=== PATIENT | female | born 1965 | race Caucasian/White ===

== ENCOUNTER 2016-04-02 11:05 | Emergency (ER) | payer MEDICAID, OTHER ==
[~2016-04-02] VITALS: Ht 157.5 cm; Wt 120.0 kg
[~2016-04-02 11:05] MED LIST: ALEN70TA39 PO; ASPI81 PO; FENO1TAB76 PO; HYDR-3533 PO; LASI20TA PO; POTA-243 PO; RANI150T PO; TOPR50TA PO; VITA-13 PO; ZOCO40TA PO
[2016-04-02 11:24] VITALS: BP 144/90; PULSE 82; RESP 18; TEMP 99.2; O2SAT 96
[2016-04-02] MEDS ORDERED: POTA10TA2 PO (11:46)
[2016-04-02] MEDS ORDERED: ASPI81CH7 CHEW (11:46)
[2016-04-02] MEDS ORDERED: METO50TA PO (11:46)
[2016-04-02] MEDS ORDERED: FURO1TAB62 PO (11:46)
[2016-04-02] MEDS ORDERED: RANI150T PO (11:46)
[2016-04-02] MEDS ORDERED: SIMV20TA PO (11:46)
--- NOTE | 2016-04-02 11:51 | PD ---
HPI Chief Complaint: Back/ Neck Pain or Injury Time Seen by Provider: 11:50 Travel History International Travel<30 days: No Contact w/Intl Traveler<30days: No Traveled to known affect area: No History of Present Illness HPI 51-year-old female presents to the emergency Department with complaint of urinary urgency, frequency, dysuria 3 days. Reports fever of 100.9 on Friday and has not had fever since. Denies abdominal pain. Reports nausea without vomiting. Reports bladder spasms after urination. Denies hematuria. Reports history of kidney stones. Reports bilateral low back pain. Denies vaginal discharge, odor, itch, lesions. Denies being sexually active and reports being in premenopausal. Had a small menses in February. Took Tylenol last night with no relief of symptoms. Dr. Ventura is primary care provider. History of hypertension, hyperlipidemia, lower extremity edema and is on Lasix. No other modifying factors or associated signs and symptoms. PFSH Past Medical History Hx Anticoagulant Therapy: Yes (asa 81mg) Blood Disorders: No Cancer: No Cardiovascular Problems: Yes (HTN) High Cholesterol: Yes Chest Pain: Yes Congestive Heart Failure: Yes Diabetes: No Diminished Hearing: No GERD: Yes Genitourinary: Yes (FREQUENT UTI/KIDNEY STONES) Hypertension: Yes Immune Disorder: No Musculoskeletal: Yes (CHRONIC BACK PAIN) Neurologic: No Psychiatric: No Reproductive: No Respiratory: Yes (SLEEP APNEA) Immunizations Current: Yes Sleep Apnea: Yes (wears c-pap) Thyroid Disease: Yes ?: Not Menopausal: Yes Dilation and Curettage (D&C): Yes (2005) Past Surgical History Body Medical Devices: SCREWS AND PLATE IN LEFT ELBOW Cholecystectomy: Yes Endocrine Surgery: Yes (PARTIAL PARATHYROIDECTOMY X 3) Tonsillectomy: Yes Other Surgery: Yes (RLE VEIN ABLATION) Social History Alcohol Use: No Tobacco Use: No Substance Use: No Allergies-Medications (Allergen,Severity, Reaction): Coded Allergies: Niacin (Verified Allergy, Intermediate, FLUSH, 04/02/16) *MDRO Multi-Drug Resistant Organism (Verified Adverse Reaction, Unknown, ) 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 (urine-11/08/15) Reported Meds & Prescriptions Reported Meds & Active Scripts Active Robaxin (Methocarbamol) 750 Mg Tab 750 Mg PO QID Reported Metoprolol Tartrate 50 Mg Tab 50 Mg PO BID Ranitidine (Ranitidine HCl) 150 Mg Tab 150 Mg PO BID Simvastatin 20 Mg Tab 20 Mg PO DAILY Potassium Chloride ER (Potassium Chloride) 10 Meq Tab 10 Meq PO DAILY Aspirin Children's (Aspirin) 81 Mg Chew 81 Mg CHEW DAILY Lasix (Furosemide) 20 Mg Tab 20 Mg PO BID Review of Systems Except as stated in HPI: all other systems reviewed are Neg Physical Exam Narrative GENERAL: Well-nourished, well-developed female patient, in no acute distress SKIN: Warm and dry. No rash. HEAD: Atraumatic. Normocephalic. EYES: Pupils equal and round. No scleral icterus. No injection or drainage. ENT: Mucosa pink and moist. NECK: Trachea midline. CARDIOVASCULAR: Regular rate and rhythm. No murmur appreciated. RESPIRATORY: No accessory muscle use. Clear to auscultation. Breath sounds equal bilaterally. GASTROINTESTINAL: Abdomen soft, non-tender, nondistended. Hepatic and splenic margins not palpable. Bowel sounds are active 4 quadrants. Bladder tender on palpation; and nondistended. MUSCULOSKELETAL: No obvious deformities. No clubbing. No cyanosis. No edema. BACK: No CVA tenderness. NEUROLOGICAL: Awake and alert. Oriented 3. No obvious cranial nerve deficits. Motor grossly within normal limits. Normal speech. Moves all extremities. 5/5 strength to all extremities. PSYCHIATRIC: Appropriate mood and affect; insight and judgment normal. Data Data Last Documented VS Vital Signs Date Time Temp Pulse Resp B/P Pulse Ox O2 Delivery O2 Flow Rate FiO2 04/02/16 13:42 16 97 Room Air 04/02/16 13:41 81 143/72 04/02/16 11:24 99.2 Orders Urinalysis - C+S If Indicated (04/02/16 11:43) Ed Urine Pregnancytest Poc (04/02/16 11:50) Ibuprofen (Motrin) (04/02/16 12:00) Complete Blood Count With Diff (04/02/16 12:37) Comprehensive Metabolic Panel (04/02/16 12:37) Lipase (04/02/16 12:37) Prothrombin Time / Inr (Pt) (04/02/16 12:37) Act Partial Throm Time (Ptt) (04/02/16 12:37) Iv Access Insert/Monitor (04/02/16 12:37) Ecg Monitoring (04/02/16 12:37) Oximetry (04/02/16 12:37) Morphine Inj (Morphine Inj) (04/02/16 12:45) Ondansetron Inj (Zofran Inj) (04/02/16 12:45) Sodium Chlor 0.9% 1000 Ml Inj (Ns 1000 M (04/02/16 12:37) Ct Abd/Pel W/O Iv Contrast (04/02/16 12:37) Labs Laboratory Tests Test 04/02/16 04/02/16 11:50 13:15 Urine Collection Type CLEAN CATCH Urine Color STRAW Urine Turbidity CLEAR Urine pH 7.0 Urine Specific [place] 1.004 Urine Protein NEG mg/dL Urine Glucose (UA) NEG mg/dL Urine Ketones NEG mg/dL Urine Occult Blood NEG Urine Nitrite NEG Urine Bilirubin NEG Urine Leukocyte Esterase NEG Urine WBC 0-2 /hpf Urine Squamous Epithelial 0-5 /hpf Cells Urine Amorphous Sediment SMALL Microscopic Urinalysis Comment CULT NOT INDICATED White Blood Count 8.9 TH/MM3 Red Blood Count 4.20 MIL/MM3 Hemoglobin 12.2 GM/DL Hematocrit 38.6 % Mean Corpuscular Volume 91.8 FL Mean Corpuscular Hemoglobin 29.1 PG Mean Corpuscular Hemoglobin 31.7 % Concent Red Cell Distribution Width 13.7 % Platelet Count 275 TH/MM3 Mean Platelet Volume 7.6 FL Neutrophils (%) (Auto) 74.0 % Lymphocytes (%) (Auto) 20.2 % Monocytes (%) (Auto) 4.0 % Eosinophils (%) (Auto) 1.3 % Basophils (%) (Auto) 0.5 % Neutrophils # (Auto) 6.6 TH/MM3 Lymphocytes # (Auto) 1.8 TH/MM3 Monocytes # (Auto) 0.4 TH/MM3 Eosinophils # (Auto) 0.1 TH/MM3 Basophils # (Auto) 0.0 TH/MM3 CBC Comment DIFF FINAL Differential Comment Prothrombin Time 10.6 SEC Prothromb Time International 1.0 RATIO Ratio Activated Partial 24.2 SEC Thromboplast Time Sodium Level 142 MEQ/L Potassium Level 3.9 MEQ/L Chloride Level 107 MEQ/L Carbon Dioxide Level 26.6 MEQ/L Anion Gap 8 MEQ/L Blood Urea Nitrogen 17 MG/DL Creatinine 0.97 MG/DL Estimat Glomerular Filtration 61 ML/MIN Rate Random Glucose 85 MG/DL Calcium Level 11.1 MG/DL Total Bilirubin 0.4 MG/DL Aspartate Amino Transf 15 U/L (AST/SGOT) Alanine Aminotransferase 25 U/L (ALT/SGPT) Alkaline Phosphatase 88 U/L Total Protein 7.4 GM/DL Albumin 3.6 GM/DL Lipase 90 U/L MDM Medical Decision Making Medical Screen Exam Complete: Yes Emergency Medical Condition: Yes Medical Record Reviewed: Yes Differential Diagnosis Urinary tract infection, pyelonephritis, kidney stones Narrative Course 51-year-old female with dysuria, urgency, frequency 3 days. Low-grade fever of 99.2 in the ER. Reports fever on Friday of 100.9 but has been afebrile since. Patient is nontoxic appearing. No CVA tenderness. Urinary negative. Urinalysis ordered. 1155: Dr. Hitchcock, my attending physician, and he agrees with plan of care. 1221: Urinalysis negative for infection. Dr. Hitchcock, my attending physician, evaluated the patient and ordered labs and a CT of the abdomen. 1320: CT abdomen concludes 1. A few tiny nonobstructing right renal stones are again demonstrated; 2. The previously noted right-sided double-J stent has been removed; 3. Otherwise, no other new or significant changes compared to the prior exam. 1403: CBC unremarkable. Coags unremarkable. BMP unremarkable, other than GFR 61 and Calcium 11.1. See Dr. Hitchcock's note for patient disposition. Scripts Methocarbamol (Robaxin)750 Mg Gsp234 Mg PO QID #40 TAB Prov:Ishmael Hitchcock MD 04/02/16 Ingrid Nam Apr 02, 2016 11:51
[2016-04-02 11:56] LABS: BLOOD, URINE NEG (NEG); GLUCOSE,URINE NEG (NEG); KETONE, URINE NEG (NEG); NITRITE,URINE NEG (NEG)
[2016-04-02] MEDS ORDERED: IBUPROFEN 800 MG TAB PO ONE (12:00)
[2016-04-02 12:04] LABS: METHOD OF COLLECTION CLEAN CATCH; URINE COLOR STRAW (YELLW/STRAW)
[2016-04-02 12:05] LABS: COMMENT (UR) CULT NOT INDICATED; CULTURE IF INDICATED CULT NOT INDICATED; SQUAMOUS EPITHELIAL CELL URINE 0-5 /hpf (0-5); WBC, URINE 0-2 /hpf (0-5)
[2016-04-02] MEDS ORDERED: SODIUM CHLOR 0.9% 1000 ML INJ 1,000 ML IV SCH (12:37)
--- NOTE | 2016-04-02 12:41 | PD ---
Physical Exam Narrative Patient was seen by my assistant office manager and signed out to me. Patient complains of low back pain, right flank pain with nausea vomiting. Patient states that the symptoms started 3 days ago. Patient has history kidney stone in the past. Patient was seen Dr. Carrillo and had stent placement with subsequent removal in the past. Data Data Last Documented VS Vital Signs Date Time Temp Pulse Resp B/P Pulse Ox O2 Delivery O2 Flow Rate FiO2 04/02/16 13:42 16 97 Room Air 04/02/16 13:41 81 143/72 04/02/16 11:24 99.2 Orders Urinalysis - C+S If Indicated (04/02/16 11:43) Ed Urine Pregnancytest Poc (04/02/16 11:50) Ibuprofen (Motrin) (04/02/16 12:00) Complete Blood Count With Diff (04/02/16 12:37) Comprehensive Metabolic Panel (04/02/16 12:37) Lipase (04/02/16 12:37) Prothrombin Time / Inr (Pt) (04/02/16 12:37) Act Partial Throm Time (Ptt) (04/02/16 12:37) Iv Access Insert/Monitor (04/02/16 12:37) Ecg Monitoring (04/02/16 12:37) Oximetry (04/02/16 12:37) Morphine Inj (Morphine Inj) (04/02/16 12:45) Ondansetron Inj (Zofran Inj) (04/02/16 12:45) Sodium Chlor 0.9% 1000 Ml Inj (Ns 1000 M (04/02/16 12:37) Ct Abd/Pel W/O Iv Contrast (04/02/16 12:37) Labs Laboratory Tests Test 04/02/16 04/02/16 11:50 13:15 Urine Collection Type CLEAN CATCH Urine Color STRAW Urine Turbidity CLEAR Urine pH 7.0 Urine Specific [place] 1.004 Urine Protein NEG mg/dL Urine Glucose (UA) NEG mg/dL Urine Ketones NEG mg/dL Urine Occult Blood NEG Urine Nitrite NEG Urine Bilirubin NEG Urine Leukocyte Esterase NEG Urine WBC 0-2 /hpf Urine Squamous Epithelial 0-5 /hpf Cells Urine Amorphous Sediment SMALL Microscopic Urinalysis Comment CULT NOT INDICATED White Blood Count 8.9 TH/MM3 Red Blood Count 4.20 MIL/MM3 Hemoglobin 12.2 GM/DL Hematocrit 38.6 % Mean Corpuscular Volume 91.8 FL Mean Corpuscular Hemoglobin 29.1 PG Mean Corpuscular Hemoglobin 31.7 % Concent Red Cell Distribution Width 13.7 % Platelet Count 275 TH/MM3 Mean Platelet Volume 7.6 FL Neutrophils (%) (Auto) 74.0 % Lymphocytes (%) (Auto) 20.2 % Monocytes (%) (Auto) 4.0 % Eosinophils (%) (Auto) 1.3 % Basophils (%) (Auto) 0.5 % Neutrophils # (Auto) 6.6 TH/MM3 Lymphocytes # (Auto) 1.8 TH/MM3 Monocytes # (Auto) 0.4 TH/MM3 Eosinophils # (Auto) 0.1 TH/MM3 Basophils # (Auto) 0.0 TH/MM3 CBC Comment DIFF FINAL Differential Comment Prothrombin Time 10.6 SEC Prothromb Time International 1.0 RATIO Ratio Activated Partial 24.2 SEC Thromboplast Time Sodium Level 142 MEQ/L Potassium Level 3.9 MEQ/L Chloride Level 107 MEQ/L Carbon Dioxide Level 26.6 MEQ/L Anion Gap 8 MEQ/L Blood Urea Nitrogen 17 MG/DL Creatinine 0.97 MG/DL Estimat Glomerular Filtration 61 ML/MIN Rate Random Glucose 85 MG/DL Calcium Level 11.1 MG/DL Total Bilirubin 0.4 MG/DL Aspartate Amino Transf 15 U/L (AST/SGOT) Alanine Aminotransferase 25 U/L (ALT/SGPT) Alkaline Phosphatase 88 U/L Total Protein 7.4 GM/DL Albumin 3.6 GM/DL Lipase 90 U/L [facility] Supervised Visit with JOHNY: Yes Interpretation(s) [address] scan abdomen pelvis shows nonobstructive stone on the right side , with no other acute abnormality. CBC within normal limit. UA is negative. 1404 p.m. CMP within normal limit. Differential Diagnosis Differential diagnosis including PUD, pancreatitis, cholecystitis, nephrolithiasis, pyelonephritis, musculoskeletal. Narrative Course 51-year-old female with low back pain, right flank pain, abdominal pain, urinary frequency and fever. Normal saline solution 1 25 cc an hour. Morphine 4 mg IV. Zofran 4 mg IV. Protonix 40 mg IV. Diagnosis Primary Impression: Abdominal pain Qualified Code: R10.9 - Abdominal pain, unspecified location Additional Impression: Lumbar strain Qualified Code: S39.012A - Lumbar strain, initial encounter Patient Instructions: General Instructions Additional Instruction: Take medication as directed for pain. Follow-up with personal physician. Return if worse. Med/Other Pt SpecificInfo: Prescription(s) given Scripts Methocarbamol (Robaxin)750 Mg [id number] Mg PO QID #40 TAB Prov:Ishmael Hitchcock MD 04/02/16 Disposition: 01 DISCHARGE HOME Condition: Stable Ishmael Hitchcock MD Apr 02, 2016 12:41
[2016-04-02] MEDS ORDERED: MORPHINE SULFATE 4 MG/ML INJ IV PUSH ONE (12:45)
[2016-04-02] MEDS ORDERED: ONDANSETRON HCL 4 MG/2 ML VIAL IVP ONE (12:45)
--- NOTE | 2016-04-02 13:10 | RADHPO ---
EXAM DATE/TIME: 04/02/2016 12:50 [facility] COMPARISON: CT ABDOMEN & PELVIS W/O CONTRAST, November 17, 2015, 22:08. INDICATIONS : Lower back pain and frequent urination. ORAL CONTRAST: No oral contrast ingested. RADIATION DOSE: 26.86 CTDIvol (mGy) MEDICAL HISTORY : Hypertension. Gastroesophageal reflux disease. Renal calculi. SURGICAL HISTORY : None. ENCOUNTER: Initial ACUITY: 3 days PAIN SCALE: 8/10 LOCATION: lower quadrant TECHNIQUE: Volumetric scanning of the abdomen and pelvis was performed. Using automated exposure control and ad justment of the mA and/or kV according to patient size, radiation dose was kept as low as reasonably achievable to obtain optimal diagnostic quality images. The lack of IV contrast limits the diagnosis for certain organ pathology. FINDINGS: LOWER LUNGS: The visualized lower lungs are clear. LIVER: Homogeneous density without lesion. There is no dilation of the biliary tree. No gallbladder, surgi joce removed. SPLEEN: Normal size without lesion. PANCREAS: Within normal limits. KIDNEYS: There is a nonobstructing 3 mm stone in the upper pole the right kidney. There is a tiny 1 mm stone i n the lower pole the right kidney not causing junction. There is a right extrarenal pelvis. The right ureter is mildly dilated but no ureteral stones are demonstrated. The previously noted right double- J stent has been removed. The left kidney is unremarkable. No hydronephrosis. ADRENAL GLANDS: Stable VASCULAR: There is no aortic aneurysm. BOWEL/MESENTERY: The stomach, small bowel, and colon demonstrate no acute abnormality. There is no free intraperitone al air or fluid. No inflammatory changes. ABDOMINAL WALL: Within normal limits. RETROPERITONEUM: There is no lymphadenopathy. BLADDER: No wall thickening or mass. REPRODUCTIVE: Within normal limits. INGUINAL: There is no lymphadenopathy or hernia. MUSCULOSKELETAL: Within normal limits for patient age. No significant changes compared to the prior study. CONCLUSION: 1. A few tiny nonobstructing right renal stones are again demonstrated. 2. The previously noted right-sided double-J stent has been removed. 3. Otherwise, no other new or significant changes compared to the prior exam. Servando Carlson MD on April 02, 2016 at 13:03 Board Certified Radiologist. This report was verified electronically.
[2016-04-02 13:26] LABS: AUTOMATED NEUTROPHIL # 6.6 TH/MM3 (1.8-7.7); BASOPHIL % 0.5 % (0.0-2.0); EOSINOPHIL # 0.1 TH/MM3 (0-0.4); EOSINOPHIL % 1.3 % (0.0-4.0); HEMATOCRIT 38.6 % (35.0-46.0); HEMO FLAGS DIFF FINAL; LYMPH % 20.2 % (9.0-44.0); LYMPHOCYTE # 1.8 TH/MM3 (1.0-4.8); MEAN CELL VOLUME 91.8 FL (80.0-100.0); MEAN CORPUSCULAR HEMOGLOBIN 29.1 PG (27.0-34.0); MEAN CORPUSCULAR HGB CONC 31.7 % (32.0-36.0); PLATELET COUNT 275 TH/MM3 (150-450); RED CELL DISTRIBUTION WIDTH 13.7 % (11.6-17.2); WHITE BLOOD COUNT 8.9 TH/MM3 (4.0-11.0)
[2016-04-02 13:41] VITALS: BP 143/72; PULSE 81; RESP 16; O2SAT 96
[2016-04-02 13:42] VITALS: RESP 16; O2SAT 97
[2016-04-02] MEDS ORDERED: ROBA750T PO (13:43)
[2016-04-02 13:44] LABS: CHLORIDE 107 MEQ/L (98-107); POTASSIUM 3.9 MEQ/L (3.5-5.1); SODIUM (NA) 142 MEQ/L (136-145)
[2016-04-02 13:49] LABS: ANION GAP 8 MEQ/L (5-15); APTT (PATIENT) 24.2 SEC (24.3-30.1); BICARBONATE 26.6 MEQ/L (21.0-32.0); BLOOD UREA NITROGEN 17 MG/DL (7-18); PROTHROMBIN TIME - PATIENT 10.6 SEC (9.8-11.6)
[2016-04-02 13:52] LABS: ALT (GPT) 25 U/L (10-53); AST (GOT) 15 U/L (15-37); GLOMERULAR FILTRATION RATE 61 ML/MIN (>89)
[2016-04-02 13:54] LABS: TOTAL BILIRUBIN ADULT 0.4 MG/DL (0.2-1.0)
[2016-04-02 13:55] LABS: ALKALINE PHOSPHATASE 88 U/L (45-117)
== END 2016-04-02 14:24 | disposition home or self-care (01) ==
LOC: PHEFT 11:05
DX: R10.9 Unspecified abdominal pain (principal); S39.012A Strain of muscle, fascia and tendon of lower back, initial encounter; N20.0 Calculus of kidney; I10 Essential (primary) hypertension; E78.5 Hyperlipidemia, unspecified; E07.9 Disorder of thyroid, unspecified; Z87.442 Personal history of urinary calculi; Z79.899 Other long term (current) drug therapy; Z79.82 Long term (current) use of aspirin; Z86.79 Personal history of other diseases of the circulatory system; Z87.19 Personal history of other diseases of the digestive system; Z87.39 Personal history of other diseases of the musculoskeletal system and connective tissue; X58.XXXA Exposure to other specified factors, initial encounter
CPT/HCPCS: 74176; 80053; 81001; 83690; 84703; 85025; 85610; 85730; 96361; 96374; 99284; J2405; J7030

== ENCOUNTER 2017-02-05 09:39 | Emergency (ER) | payer MEDICAID ==
[~2017-02-05] VITALS: Ht 157.5 cm; Wt 127.0 kg
[~2017-02-05 09:39] MED LIST changes: -ALEN70TA39 PO; -ASPI81 PO; +ASPI81CH7 CHEW; -FENO1TAB76 PO; +FURO1TAB62 PO; -HYDR-3533 PO; -LASI20TA PO; +METO50TA PO; -POTA-243 PO; +POTA10TA2 PO; +ROBA750T PO; +SIMV20TA PO; -TOPR50TA PO; -VITA-13 PO; -ZOCO40TA PO
[2017-02-05 09:51] VITALS: BP 133/62; PULSE 80; RESP 16; TEMP 98.1; O2SAT 96
[2017-02-05 10:30] VITALS: BP 126/50; PULSE 78; RESP 17; O2SAT 97
[2017-02-05] MEDS ORDERED: RANI150T PO (10:37)
--- NOTE | 2017-02-05 11:02 | PD ---
HPI Chief Complaint: Skin Problem Time Seen by Provider: 10:47 Travel History International Travel<30 days: No Contact w/Intl Traveler<30days: No Traveled to known affect area: No History of Present Illness HPI This 51-year-old female is complaining of pain in her left leg. She has pain in her knee. She tends to have a lot of pain in her knee on a regular basis but seems like it's been worse the last couple of days. She is also noted some swelling of her calf. She does have a history of bilateral peripheral edema and takes Lasix on an as-needed basis. She's been trying to cut back on her Lasix. She also is supposed to take potassium but she does not always take it. She has a history of hyperparathyroidism and has had 3 of her parathyroid glands removed but her calcium still tends to run around 12. She has had kidney stones in the past. She has no history of DVT. The left leg is more painful than usual PFSH Past Medical History Hx Anticoagulant Therapy: Yes (asa 81mg) Blood Disorders: No Cancer: No Cardiovascular Problems: Yes (HTN) High Cholesterol: Yes Chest Pain: Yes Congestive Heart Failure: Yes Diabetes: No Diminished Hearing: No GERD: Yes Genitourinary: Yes (FREQUENT UTI/KIDNEY STONES) Hypertension: Yes Immune Disorder: No Medical other: Yes (Hypercalcemia, osteoporosis) Musculoskeletal: Yes (CHRONIC BACK PAIN) Neurologic: No Psychiatric: No Reproductive: No Respiratory: Yes (SLEEP APNEA) Immunizations Current: Yes Sleep Apnea: Yes (wears c-pap) Thyroid Disease: Yes Tetanus Vaccination: Unknown Influenza Vaccination: No ?: Not Menopausal: Yes Dilation and Curettage (D&C): Yes (2005) Past Surgical History Body Medical Devices: SCREWS AND PLATE IN LEFT ELBOW Cholecystectomy: Yes Endocrine Surgery: Yes (PARTIAL PARATHYROIDECTOMY X 3) Tonsillectomy: Yes Other Surgery: Yes (RLE VEIN ABLATION) Social History Alcohol Use: No Tobacco Use: No Substance Use: No Allergies-Medications (Allergen,Severity, Reaction): Coded Allergies: niacin (Verified Allergy, Intermediate, FLUSH, 02/05/17) *MDRO Multi-Drug Resistant Organism (Verified Adverse Reaction, Unknown, 02/05/17) 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 (urine-11/08/15) Reported Meds & Prescriptions Reported Meds & Active Scripts Active Reported Ranitidine (Ranitidine HCl) 150 Mg Tab 150 Mg PO DAILY PRN Metoprolol Tartrate 50 Mg Tab 50 Mg PO BID Simvastatin 20 Mg Tab 20 Mg PO DAILY Aspirin Children's (Aspirin) 81 Mg Chew 81 Mg CHEW DAILY Lasix (Furosemide) 20 Mg Tab 20 Mg PO BID Review of Systems General / Constitutional: No: Fever, Chills Eyes: No: Diploplia, Blurred Vision HENT: No: Headaches, Vertigo Cardiovascular: Positive: Edema, No: Chest Pain or Discomfort Respiratory: No: Cough, Shortness of Breath Gastrointestinal: No: Nausea Physical Exam Narrative GENERAL: Well-developed female. She is overweight SKIN: Focused skin assessment warm/dry. HEAD: Atraumatic. Normocephalic. EYES: Pupils equal and round. No scleral icterus. No injection or drainage. ENT: No nasal bleeding or discharge. Mucous membranes pink and moist. NECK: Trachea midline. No JVD. CARDIOVASCULAR: Regular rate and rhythm. No murmur appreciated. RESPIRATORY: No accessory muscle use. Clear to auscultation. Breath sounds equal bilaterally. GASTROINTESTINAL: Abdomen soft, non-tender, nondistended. Hepatic and splenic margins not palpable. MUSCULOSKELETAL: No obvious deformities. No clubbing. No cyanosis. There is swelling of both legs left greater than right. There is some hyperpigmentation of the skin on the left. There is some tenderness of the calf on the left NEUROLOGICAL: Awake and alert. No obvious cranial nerve deficits. Motor grossly within normal limits. Normal speech. PSYCHIATRIC: Appropriate mood and affect; insight and judgment normal. Data Data Last Documented VS Vital Signs Date Time Temp Pulse Resp B/P (MAP) Pulse Ox O2 Delivery O2 Flow Rate FiO2 02/05/17 11:32 97.8 76 17 134/76 (95) 99 Room Air Orders Orders Complete Blood Count With Diff (02/05/17 10:54) Basic Metabolic Panel (Bmp) (02/05/17 10:54) Knee, Complete (4vws) (02/05/17 10:54) Us Leg Venous Doppler (02/05/17 10:54) Labs Laboratory Tests Test 02/05/17 11:34 White Blood Count 7.6 TH/MM3 Red Blood Count 4.22 MIL/MM3 Hemoglobin 12.9 GM/DL Hematocrit 38.2 % Mean Corpuscular Volume 90.6 FL Mean Corpuscular Hemoglobin 30.5 PG Mean Corpuscular Hemoglobin Concent 33.6 % Red Cell Distribution Width 13.5 % Platelet Count 211 TH/MM3 Mean Platelet Volume 8.5 FL Neutrophils (%) (Auto) 66.4 % Lymphocytes (%) (Auto) 23.3 % Monocytes (%) (Auto) 6.4 % Eosinophils (%) (Auto) 1.6 % Basophils (%) (Auto) 2.3 % Neutrophils # (Auto) 5.0 TH/MM3 Lymphocytes # (Auto) 1.8 TH/MM3 Monocytes # (Auto) 0.5 TH/MM3 Eosinophils # (Auto) 0.1 TH/MM3 Basophils # (Auto) 0.2 TH/MM3 CBC Comment DIFF FINAL Differential Comment Blood Urea Nitrogen 16 MG/DL Creatinine 0.93 MG/DL Random Glucose 84 MG/DL Calcium Level 10.8 MG/DL Sodium Level 144 MEQ/L Potassium Level 4.1 MEQ/L Chloride Level 109 MEQ/L Carbon Dioxide Level 30.6 MEQ/L Anion Gap 4 MEQ/L Estimat Glomerular Filtration Rate 64 ML/MIN [facility] Medical Decision Making Medical Screen Exam Complete: Yes Emergency Medical Condition: Yes Medical Record Reviewed: Yes Differential Diagnosis Differential includes arthritis of the knee, chronic venous insufficiency, DVT Narrative Course X-ray does show some medial compartment osteoarthritis. Ultrasound is negative for DVT. Calcium is slightly elevated at 10.8 Diagnosis Primary Impression: Chronic venous insufficiency Disposition: 01 DISCHARGE HOME Condition: Stable Dale Seals MD Feb 05, 2017 11:02
[2017-02-05 11:32] VITALS: BP 134/76; PULSE 76; RESP 17; TEMP 97.8; O2SAT 99
[2017-02-05 11:45] LABS: BASOPHIL # 0.2 TH/MM3 (0-0.2); BASOPHIL % 2.3 % (0.0-2.0); EOSINOPHIL # 0.1 TH/MM3 (0-0.4); EOSINOPHIL % 1.6 % (0.0-4.0); HEMATOCRIT 38.2 % (35.0-46.0); HEMO FLAGS DIFF FINAL; LYMPH % 23.3 % (9.0-44.0); LYMPHOCYTE # 1.8 TH/MM3 (1.0-4.8); MEAN CELL VOLUME 90.6 FL (80.0-100.0); MEAN CORPUSCULAR HEMOGLOBIN 30.5 PG (27.0-34.0); MEAN CORPUSCULAR HGB CONC 33.6 % (32.0-36.0); MONO % 6.4 % (0.0-8.0); NEUT % 66.4 % (16.0-70.0); PLATELET COUNT 211 TH/MM3 (150-450); RED BLOOD COUNT 4.22 MIL/MM3 (4.00-5.30); RED CELL DISTRIBUTION WIDTH 13.5 % (11.6-17.2); WHITE BLOOD COUNT 7.6 TH/MM3 (4.0-11.0)
--- NOTE | 2017-02-05 11:46 | RADRPT ---
EXAM DATE/TIME: 02/05/2017 11:01 [facility] COMPARISON: KNEE LEFT COMPLETE (4VWS), August 24, 2015, 10:04. INDICATIONS : Left knee pain, no injury. MEDICAL HISTORY : chronic left knee pain SURGICAL HISTORY : None. ENCOUNTER: Initial ACUITY: 2 days PAIN SCORE: 10/10 LOCATION: Left knee FINDINGS: 4 views of the left knee demonstrate no fracture or dislocation. No joint effusion is visualized. The re are medial compartment patellar osteophytes with medial joint space narrowing. No soft tissue abno rmality or radiopaque foreign body is identified. CONCLUSION: No acute left knee abnormality is identified. There is medial compartment predominant osteoarthritis. Steve Lopez MD on February 05, 2017 at 11:43 Board Certified Radiologist. This report was verified electronically.
[2017-02-05 11:55] LABS: POTASSIUM 4.1 MEQ/L (3.5-5.1)
[2017-02-05 11:59] LABS: BICARBONATE 30.6 MEQ/L (21.0-32.0)
--- NOTE | 2017-02-05 12:24 | RADRPT ---
EXAM DATE/TIME: 02/05/2017 11:43 [facility] COMPARISON: US LEG LEFT VENOUS DOPPLER, August 24, 2015, 10:58. INDICATIONS : Left leg swelling and pain. MEDICAL HISTORY : Hypothyroidism. Hypercholesterolemia. Gastroesophageal reflux disease. Hypertension. Hyperlipidemi a. Sleep apnea. Kidney stones. UTI. Osteoarthritis. Chronic back pain. MRSA. SURGICAL HISTORY : Tonsillectomy. Cholecystectomy. D&C. Parathyroidectomy. Left elbow surgery. ENCOUNTER: Initial ACUITY: 1 month PAIN SCORE: 10/10 LOCATION: Left leg. TECHNIQUE: Venous ultrasound of the leg was performed from the inguinal ligament to the proximal calf. Real-karishma e, color Doppler and spectral tracing, compression and augmentation techniques were used. FINDINGS: There is normal compressibility of the deep venous system from the inguinal region to the proximal ca lf. No echogenic clot is seen in the lumen of the common femoral, femoral, popliteal, and posterior tibial veins. There is a normal response of the venous system to proximal and distal augmentation an d respiration. Subcutaneous edema seen of the calf. CONCLUSION: No venous thrombosis of the left lower extremity. Steve Lake MD on February 05, 2017 at 12:22 Board Certified Radiologist. This report was verified electronically.
[2017-02-05 12:46] VITALS: BP 127/71; TEMP 97.6
== END 2017-02-05 12:52 | disposition home or self-care (01) ==
LOC: PHED 09:39
DX: I87.2 Venous insufficiency (chronic) (peripheral) (principal); E21.3 Hyperparathyroidism, unspecified; Z79.82 Long term (current) use of aspirin
CPT/HCPCS: 73564; 80048; 85025; 93971; 99284

== ENCOUNTER 2017-04-07 10:52 | Emergency (ER) | payer MEDICAID ==
[~2017-04-07] VITALS: Ht 157.5 cm; Wt 131.0 kg
[~2017-04-07 10:52] MED LIST changes: -POTA10TA2 PO; -ROBA750T PO
[2017-04-07 10:56] VITALS: PULSE 70; RESP 16; TEMP 98.5; O2SAT 96
[2017-04-07 11:14] VITALS: BP 108/60
[2017-04-07] MEDS ORDERED: KLOR10TA PO (11:14)
[2017-04-07] MEDS ORDERED: CELE20TA PO (11:14)
[2017-04-07] MEDS ORDERED: HYDR-3583 PO (11:14)
[2017-04-07] MEDS ORDERED: MOBI7.5T PO (11:14)
[2017-04-07] MEDS ORDERED: ALEN1TAB48 PO (11:14)
[2017-04-07] MEDS ORDERED: FENO145T2 PO (11:14)
[2017-04-07] MEDS ORDERED: CYCL10TA PO (11:14)
--- NOTE | 2017-04-07 12:06 | PD ---
HPI . Back pain Chief Complaint: Injury Time Seen by Provider: 11:37 Travel History International Travel<30 days: No Contact w/Intl Traveler<30days: No Traveled to known affect area: No History of Present Illness HPI This patient presents with chief complaint of low back pain. She suffered a slip and fall today. She states that her kitchen chair slid out from under her causing her to land on her buttocks. She had the immediate onset of back pain. She describes the pain as sharp and states that it is constant and she rates it 10/10. She has not taken anything for it prior to presentation to us. PFSH Past Medical History Hx Anticoagulant Therapy: Yes (asa 81mg) Blood Disorders: No Depression: Yes Cancer: No Cardiovascular Problems: Yes (HTN) High Cholesterol: Yes Chest Pain: Yes Congestive Heart Failure: Yes Diabetes: No Diminished Hearing: No GERD: Yes Genitourinary: Yes (FREQUENT UTI/KIDNEY STONES) Hypertension: Yes Immune Disorder: No Medical other: Yes (CHRONIC LOWER LEG LYMPHADEMA) Musculoskeletal: Yes (CHRONIC BACK PAIN) Neurologic: No Psychiatric: No Reproductive: No Respiratory: Yes (SLEEP APNEA) Immunizations Current: Yes Sleep Apnea: Yes (wears c-pap) Thyroid Disease: Yes Triglycerides - High: Yes Tetanus Vaccination: > 5 Years Influenza Vaccination: Yes ?: Not Menopausal: Yes Dilation and Curettage (D&C): Yes (2005) Past Surgical History Body Medical Devices: SCREWS AND PLATE IN LEFT ELBOW Cholecystectomy: Yes Endocrine Surgery: Yes (PARTIAL PARATHYROIDECTOMY X 3) Tonsillectomy: Yes Other Surgery: Yes (RLE VEIN ABLATION) Social History Alcohol Use: No Tobacco Use: No (quit 1999) Substance Use: No Allergies-Medications (Allergen,Severity, Reaction): Coded Allergies: niacin (Verified Allergy, Intermediate, FLUSH, 04/07/17) *MDRO Multi-Drug Resistant Organism (Verified Adverse Reaction, Unknown, 02/05/17) 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 (urine-11/08/15) Reported Meds & Prescriptions Reported Meds & Active Scripts Active Reported Hydrocodone-Acetaminophen 10-325 mg Tab 1 Tab PO BID PRN Mobic (Meloxicam) 7.5 Mg Tab 7.5 Mg PO BID Fenofibrate 145 Mg Tab 145 Mg PO DAILY Celexa (Citalopram Hydrobromide) 20 Mg Tab 20 Mg PO DAILY Alendronate (Alendronate Sodium) 70 Mg Tab 70 Mg PO Q7D Flexeril (Cyclobenzaprine HCl) 10 Mg Tab 10 Mg PO DAILY Klor-Con 10 (Potassium Chloride) 10 Meq Tab 10 Meq PO DAILY Ranitidine (Ranitidine HCl) 150 Mg Tab 150 Mg PO DAILY PRN Metoprolol Tartrate 50 Mg Tab 50 Mg PO BID Simvastatin 20 Mg Tab 20 Mg PO DAILY Aspirin Children's (Aspirin) 81 Mg Chew 81 Mg CHEW DAILY Lasix (Furosemide) 20 Mg Tab 20 Mg PO BID Review of Systems Except as stated in HPI: all other systems reviewed are Neg Musculoskeletal: Positive: Edema (chronic swelling of her left lower extremity) , Pain (back pain) Physical Exam Narrative GENERAL: Awake and alert and in no acute distress. SKIN: Warm and dry. HEAD: Normocephalic/atraumatic. EYES: Pupils are equal. Extraocular movements are intact. NECK: Normal range of motion. CARDIOVASCULAR: Regular rate and rhythm. RESPIRATORY: Nonlabored respirations. MUSCULOSKELETAL: Atraumatic. She has diffuse tenderness to palpation of her back. No point tenderness. NEUROLOGICAL: Nonfocal. PSYCHIATRIC: Appropriate mood and affect. Data Data Last Documented VS Vital Signs Date Time Temp Pulse Resp B/P (MAP) Pulse Ox O2 Delivery O2 Flow Rate FiO2 04/07/17 11:14 108/60 (76) 04/07/17 11:04 Room Air 04/07/17 10:56 98.5 70 16 96 Orders Orders Spine, Lumbar - Ltd (Ap & Lat) (04/07/17 11:37) Pelvis, Ap Only (Routine) (04/07/17 11:37) [facility] Medical Decision Making Medical Screen Exam Complete: Yes Emergency Medical Condition: Yes Differential Diagnosis Differential diagnosis of back injury includes but is not limited to contusion, muscle strain, ligamentous strain, compression fracture, spinous process fracture Narrative Course This patient presents complaining with back pain after falling and landing on her buttocks. L-spine and AP pelvis are pending to rule out compression fracture. L spine: There are degenerative changes at L1-2 with large anterior osteophytes. There is good preservation of vertebral body heights without acute compression. There are mild degenerative changes facets at L4-5 and L5-S1. Pelvis: A single frontal view of the pelvis demonstrates no evidence of fracture. The bony pelvic ring is intact. Bony mineralization is normal. The soft tissues are intact. The plain films were independently viewed by me. She will be discharged with a prescription for Relafen to use as needed for pain. Diagnosis Primary Impression: Back contusion Qualified Codes: S20.229A - Contusion of unspecified back wall of thorax, initial encounter Patient Instructions: Contusion in Adults (DC), General Instructions, RICE Therapy (ED) Med/Other Pt SpecificInfo: Prescription(s) given Scripts Nabumetone (Nabumetone) 500 Mg Tab 500 MG PO BID for Pain-Inflammation, #60 TAB 0 Refills Prov: Susy Willams MD 04/07/17 Disposition: 01 DISCHARGE HOME Condition: Stable Susy Willams MD Apr 07, 2017 12:06
--- NOTE | 2017-04-07 12:18 | RADRPT ---
EXAM DATE/TIME: 04/07/2017 11:47 [facility] COMPARISON: No previous studies available for comparison. INDICATIONS : Back pain post fall. MEDICAL HISTORY : None. SURGICAL HISTORY : None. ENCOUNTER: Initial ACUITY: 1 day PAIN SCORE: 7/10 LOCATION: Lumbar spine FINDINGS: There are degenerative changes at L1-2 with large anterior osteophytes. There is good preservation o f vertebral body heights without acute compression. There are mild degenerative changes facets at L4 -5 and L5-S1. CONCLUSION: Degenerative changes worse at L1-2 without evidence for acute compression. Micha Hough MD FACR on April 07, 2017 at 12:15 Board Certified Radiologist. This report was verified electronically.
--- NOTE | 2017-04-07 12:19 | RADRPT ---
EXAM DATE/TIME: 04/07/2017 11:47 [facility] COMPARISON: No previous studies available for comparison. INDICATIONS : Bilateral hip pain MEDICAL HISTORY : None. SURGICAL HISTORY : None. ENCOUNTER: Initial ACUITY: 1 day PAIN SCORE: 10/10 LOCATION: Bilateral hips FINDINGS: A single frontal view of the pelvis demonstrates no evidence of fracture. The bony pelvic ring is in tact. Bony mineralization is normal. The soft tissues are intact. CONCLUSION: Negative. I don't see fracture or significant degenerative changes. Micha Hough MD FACR on April 07, 2017 at 12:16 Board Certified Radiologist. This report was verified electronically.
[2017-04-07] MEDS ORDERED: NABU1TAB37 PO (12:28)
== END 2017-04-07 12:50 | disposition home or self-care (01) ==
LOC: PHEFT 10:52
DX: S20.229A Contusion of unspecified back wall of thorax, initial encounter (principal); W07.XXXA Fall from chair, initial encounter; E78.00 Pure hypercholesterolemia, unspecified; I11.0 Hypertensive heart disease with heart failure; I50.9 Heart failure, unspecified; F32.9 Major depressive disorder, single episode, unspecified; K21.9 Gastro-esophageal reflux disease without esophagitis; G47.30 Sleep apnea, unspecified; Z87.891 Personal history of nicotine dependence
CPT/HCPCS: 72100; 72170